=== PATIENT | female | born 1955 | race Caucasian/White ===

== ENCOUNTER 2021-11-25 16:31 | Observation (INO) | payer MEDICARE, OTHER ==
[~2021-11-25] VITALS: Ht 165.1 cm; Wt 120.2 kg
[2021-11-25 17:28] LABS: HEMOGLOBIN 15.6 gm/dl (12.3-15.3); RED BLOOD COUNT 5.02 M/UL (4.00-5.10); WHITE BLOOD COUNT 7.4 K/UL (4.5-11.0)
[2021-11-25 18:00] LABS: BUN/CREATININE RATIO 16 (0-10)
[2021-11-26] MEDS ORDERED: DICLOFENAC SODI50 MG PO (13:14)
[2021-11-26] MEDS ORDERED: OMEPRAZOLE20 MG PO (13:15)
[2021-11-26] MEDS ORDERED: MONTELUKAST SOD10 MG PO (13:15)
[2021-11-26] MEDS ORDERED: VITAMIN C500 M4 PO (13:16)
[2021-11-26] MEDS ORDERED: VITAMIN D325 MCG PO (13:17)
[2021-11-26] MEDS ORDERED: CALCIUM CARBON500 MG PO (13:18)
[2021-11-26] MEDS ORDERED: VITAMIN E1000 UNI1 PO (13:18)
[2021-11-26] MEDS ORDERED: CARVEDILOL12.5 MG PO (15:16)
[2021-11-26] MEDS ORDERED: ASPIRIN EC81 MG PO (15:16)
[2021-11-26] MEDS ORDERED: CEFDINIR300 MG PO (15:16)
[2021-11-26] MEDS ORDERED: ATORVASTATIN CA20 MG PO (15:16)
== END 2021-11-26 16:20 | disposition home or self-care (01) ==
LOC: ER1 16:31 → M/S 21:17 → CDU 21:17 → M/S 21:17
PROVIDERS: ADMIT Internal Medicine
DX: I21.4 Non-ST elevation (NSTEMI) myocardial infarction (principal); N39.0 Urinary tract infection, site not specified; E66.01 Morbid (severe) obesity due to excess calories
CPT/HCPCS: ECHO; 71045; 80053; 81001; 82550; 82553; 84484; 85025; 87086; 93005; 93306; 96365; 96372; 96375; 96376; 99285; C9113; G0378; J0696; J1650